=== PATIENT | female | born 1945 | race Caucasian/White ===

== ENCOUNTER 2016-11-01 06:54 | Emergency (ER) | payer MEDICARE ==
[~2016-11-01] VITALS: Ht 170.2 cm; Wt 81.8 kg
[~2016-11-01 06:54] MED LIST: ALBU18HF INH; ALPR0.254 PO; BACL10TA PO; BUTA1CAP39 PO; CAR8A PO; CHOL200025 PO; DIVA250T4 PO; FENO160T14 PO; FEXO-106 PO; FLUT16SP NS; GABA-502 PO; KEN25CR EXT; LOVA40TA PO; MONT10TA20 PO; MULT-1018 PO; NITR0.4T SL; ONDA-54 PO; OXYC1TAB24 PO; POLY17PO6 PO; PRAM0.5T3 PO; RES30 PO; RIZA10TA28 PO; SERT100T9 PO; SYMINH INHALATION; TRAZ-118 PO; WARF2.5T82 PO; WARF5TAB7 PO; [UNRECOGNIZED DRUG - OTHER] TOPICAL; lovenox SQ
[2016-11-01 06:58] VITALS: BP 106/44; PULSE 98; RESP 18; O2SAT 94
[2016-11-01] MEDS ORDERED: oxyCODONE-Acetamin 5-325 mg Tablet PO ONE (07:20)
[2016-11-01 07:28] LABS: BASOPHILS % (AUTO) 0.4 % (0-3); MONOCYTES % (AUTO) 4.5 % (4-12); Mean Corpuscular Hemoglobin 30.7 pg (27.0-35.0); Mean Corpuscular Volume 94.1 fL (81-100); NEUTROPHILS % (AUTO) 62.1 % (40-74); Platelet Count 314 bil/L (150-400)
--- NOTE | 2016-11-01 08:04 | ED.REPORT ---
HPI-Extremity Problem Upper Date of Service Nov 01, 2016 ED Provider: Josef Shelby DO Patient is a 71 year old female on Coumadin who presents to the ED complaining of R elbow pain that is exacerbated by movement onset 3 hours ago. Her pain radiates to her fingers and up her arm. She denies chest pain, SOB, nausea, vomiting, diaphoresis, or any other symptoms. She has not been ill recently. She took 2 nitro for her pain this morning. Nursing Notes Stated Complaint: RIGHT ARM PAIN Chief Complaint: Extremity Trauma Nursing Notes Reviewed: Yes Allergies: Coded Allergies: TAPE (Verified Allergy, Intermediate, Rash, 11/01/16) cefuroxime (Verified Allergy, Intermediate, 11/01/16) azithromycin (Verified Allergy, Unknown, 11/01/16) doxycycline (Verified Allergy, Unknown, 11/01/16) erythromycin base (Verified Allergy, Unknown, 11/01/16) morphine (Verified Adverse Reaction, Intermediate, Hallucinations, 11/01/16) Scheduled ([vaniqua]) 13.9% TOPICAL BID ([lovenox]) SQ BID Budesonide/Formoterol 160-4.5 mcg Inh (Symbicort 160-4.5 mcg Inh) 120 Puff Inhaler 1 PUFF INHALATION BID Cholecalciferol (Vitamin D3) (Vitamin D3) 2,000 Unit Tablet 2,000 UNIT PO DAILY Divalproex (Divalproex) 250 Mg Tablet.dr 250 MG PO BID Swallowed whole without chewing to avoid local irritation of the mouth and throat. Doxazosin (Cardura) 8 Mg Tablet 8 MG PO HS Fenofibrate (Fenofibrate) 160 Mg Tablet 160 MG PO DAILY Fexofenadine (Fexofenadine) 180 Mg Tablet 180 MG PO DAILY Gabapentin (Gabapentin) 300 Mg Capsule 300 MG PO BID Lovastatin (Lovastatin) 40 Mg Tablet 80 MG PO HS Montelukast (Singulair) 10 Mg Tablet 10 MG PO HS Multivitamin (Multi Vitamin Daily) 1 Each Tablet 1 EACH PO DAILY Polyethylene Glycol 3350 (Miralax) 17 Gm Powd.pack 17 GM PO DAILY Pramipexole Dihydrochloride (Mirapex) 0.5 Mg Tablet 0.5 MG PO HS Sertraline HCl (Sertraline) 100 Mg Tablet 200 MG PO DAILY Trazodone (Trazodone) 100 Mg Tablet 100-200 MG PO HS Triamcinolone Acet (Triamcinolone Acetonide Cream) 1 Applic/0.25 Gm Cr 1 APPLIC EXT BID Warfarin Sodium (Warfarin Sodium) 5 Mg Tablet 5 MG PO 5xweekly Warfarin Sodium (Warfarin Sodium) 2.5 Mg Tablet 2.5 MG PO 2xweekly Scheduled PRN Albuterol Sulfate (Ventolin HFA Inhaler) 200 Puff/18 Gm Inhaler 2 PUFF INH Q4 PRN PRN For Wheezing Alprazolam (Alprazolam) 0.25 Mg Tablet 0.25 MG PO TID PRN PRN For Anxiety Baclofen (Baclofen) 10 Mg Tablet 10 MG PO TID PRN PRN For Spasm Butalbital/Acetamin/Caff 50-300-40 mg (Fioricet 50-300-40 mg) 1 Each Capsule 1 CAPSULE PO Q4H PRN PRN migraine MR q 2hrs/ NTE 6caps/24hrs Fluticasone Propionate (Fluticasone Propionate Nasal) 16 Gm [place].susp 2 SPRAY NS BID PRN PRN allergy sx Nitroglycerin SL (Nitrostat) 0.4 Mg Tab.subl 0.4 MG SL Q5MIN PRN PRN For Chest Pain Ondansetron (Ondansetron) 8 Mg Tablet 8 MG PO TID PRN PRN For Nausea Rizatriptan ODT (Rizatriptan) 10 Mg Tablet 10 MG PO PRN migraines MR q2h/NTE 30mg/24hrs Temazepam (Temazepam) 30 Mg Cap 30 MG PO HS PRN PRN For Insomnia oxyCODONE-Acetaminophen 5-325 mg (oxyCODONE-Acetaminophen 5-325 mg) 1 Each Tablet 1 TAB PO Q4H PRN PRN For Pain General Time Seen by MD: 07:04 Chief Complaint Elbow injury right Hx Obtained From: Patient Arrived By: Walk-in Onset Occurred: 1 - 4 hours ago Symptom Duration: Since onset Past Medical History Past Medical History factor V leiden deficiency, PE 2003, on coumadin fibromyalgia restless leg Sleep apnea Previous pulmonary embolism Chronic migraines Reports: Asthma, COPD, Hyperlipidemia Reports: Depression Past Surgical History foot surgeries nasal surg L5 decompression lap christopher vag hyst Family History Reports: CAD < 40 years old, Coronary artery disease Smoking History Former Smoker Social History Alcohol Use: "Social" Drug Use: Denies drug use Other Social History: Good social support, Ambulatory Status Independent Review of Systems Musculoskeletal: Reports: Extremity swelling (R arm ), Joint pain (R elbow) Skin: Denies Diaphoresis Complete sys rev & neg: except as marked. Respiratory: Denies: Shortness of breath Cardiovascular: Denies: Chest pain GI: Denies: Nausea, Vomiting Physical Exam Initial Vital Signs Vital Signs (First) Date Time Temp Pulse Resp B/P Pulse Ox O2 Delivery O2 Flow Rate FiO2 11/01/16 06:58 36.5 98 18 106/44 94 Room Air Initial VS: Reviewed General/Constitutional: Well-developed, Well-nourished Head / Eyes: Atraumatic, Normocephalic Neck: Full range of motion Respiratory: Breath sounds normal, Clear to auscultation, No respiratory distress Cardiovascular: Regular rate & rhythm, Heart sounds normal, Intact distal pulses Abdomen / GI: Soft, Non-tender Skin: Warm, Dry Neurologic: Alert, Oriented, Nonfocal Psychiatric: Mood/affect normal, Behavior normal, Normal thought content Upper Extremity / MS: Atraumatic Right Elbow: Positive: Tenderness present... (Mild) Interpretation & Diagnostics Lab Results Interpretation Result Diagram: 11/01/16 0710 11/01/16 0710 Test 11/01/16 07:10 11/01/16 08:13 White Blood Count 6.9th/mm3 (3.8-10.1) Red Blood Count 4.07mil/mm3 (3.90-5.20) Hemoglobin 12.5g/dL (12.0-15.6) Hematocrit 38.3% (35.0-46.0) Mean Corpuscular Volume 94.1fL (81-100) Mean Corpuscular Hemoglobin 30.7pg (27.0-35.0) Mean Corpuscular Hemoglobin Concent 32.6% (32.0-37.0) Red Cell Distribution Width 13.2% (12.3-15.4) Platelet Count 314bil/L (150-400) Neutrophils (%) (Auto) 62.1% (40-74) Lymphocytes (%) (Auto) 29.7% (14-46) Monocytes (%) (Auto) 4.5% (4-12) Eosinophils (%) (Auto) 3.0% (0-5) Basophils (%) (Auto) 0.4% (0-3) Sodium Level 143mEq/L (134-144) Potassium Level 3.5mEq/L (3.5-5.2) Chloride Level 105mEq/L (97-108) Carbon Dioxide Level 25mmol/L (18-29) Blood Urea Nitrogen 20mg/dL (8-27) Creatinine 0.95mg/dL (0.57-1.00) Estimat Glomerular Filtration Rate 83mL/min (>59) Glucose Level 145mg/dL (60-99) Calcium Level 9.8mg/dL (8.5-10.1) Magnesium Level 2.0mg/dL (1.6-2.6) Total Bilirubin 0.2mg/dL (0.0-1.2) Aspartate Amino Transf (AST/SGOT) 18U/L (0-50) Alanine Aminotransferase (ALT/SGPT) 14U/L (0-32) Alkaline Phosphatase 44U/L (25-165) Troponin T < 0.010ug/L (0.0-0.011) Total Protein 7.3g/dL (6.4-8.4) Albumin 4.3g/dL (3.4-5.0) Prothrombin Time 26.9sec (8.1-12.5) Prothromb Time International Ratio 2.47ratio ECG Interpretation ECG Interpretation: sinus rate [address] changes inferior Q waves unchanged from 09/17/15 Time: 07:27 Interpreted by: ED physician X-Ray Chest Interpretation Chest Xray Interpretation: IMPRESSION: No acute cardiopulmonary disease process. Dictated by: Emily Rivas MD, PhD on 11/01/2016 at 8:27 Approved by: Emily Rivas MD, PhD on 11/01/2016 at 8:27 View: Portable, 1 view Interpretation / Wet Read by: Interpret - Radiologist Re-Eval/Medical Decision Med Decision/Clinical Course Overall not consistent with acute coronary syndrome, patient is feeling better. Doubt pulmonary was not with therapeutic INR and symptoms not consistent with PE. Offered a second troponin and EKG and continued observation however patient is reassured and declines further management. This seems reasonable and she will follow-up with her doctor. Source of Hx: Old records Re-Evaluation/Progress : Time of Eval: 08:36 Re-Evaluation/Progress Note: Discussed plan for discharge. Patient understands and agrees with plan. All questions addressed at this time. Counseled Regarding: Diagnosis, Lab results, Need for follow-up, When/why to return to ED Discharge & Departure Impression: Primary Impression: Right elbow pain Disposition: Home Discharge Condition All VS Reviewed: Yes Condition: Stable Additional Instructions: Overall your findings are not consistent with a heart attack. Call your regular doctor for further care. Avoid movements that cause pain to the right arm. Return to ER for any persistent pain symptoms concerning for heart attack or other concerns. Referrals: Hoda Simpson (PCP) Scribe Attestation Portions of this note were transcribed by Carl Desai. I, Dr. Shelby personally performed the history, physical exam and medical decision-making; I reviewed and confirmed the accuracy of the information in the transcribed note. Signed by: Carl Desai 11/01/16, 0854 copies to: Hoda Simpson Timothy S DO Nov 01, 2016 08:04 CARL DESAI Nov 01, 2016 08:43
[2016-11-01 08:13] LABS: TROPONIN T < 0.010 ug/L (0.0-0.011)
[2016-11-01 08:20] LABS: INR 2.47 ratio
--- NOTE | 2016-11-01 08:29 | DRSVH ---
PROCEDURE: X-RAY CHEST ONE VIEW, PORTABLE ([id number]) INDICATIONS: Arm pain TECHNIQUE: One view of the chest was acquired. COMPARISON: [facility], CR, XR CHEST 1VW (PORTABLE), 09/17/2015, 11:56. FINDINGS: Surgical changes and devices: None. Lungs and pleura: No pleural effusions or pneumothorax. Lungs are clear. Mediastinum: Mediastinal contours appear normal. Heart size is normal. Bones and chest wall: No suspicious bony lesions. Overlying soft tissues appear unremarkable. IMPRESSION: No acute cardiopulmonary disease process. Dictated by: Emily Rivas MD, PhD on 11/01/2016 at 8:27 Approved by: Emily Rivas MD, PhD on 11/01/2016 at 8:27
[2016-11-01 08:58] VITALS: BP 106/44; PULSE 70; RESP 15; O2SAT 96
== END 2016-11-01 08:59 | disposition home or self-care (01) ==
LOC: SED 06:54
DX: M25.521 Pain in right elbow (principal); J44.9 Chronic obstructive pulmonary disease, unspecified; M79.7 Fibromyalgia; E78.5 Hyperlipidemia, unspecified; Z79.01 Long term (current) use of anticoagulants; Z87.891 Personal history of nicotine dependence; Z88.1 Allergy status to other antibiotic agents; Z88.5 Allergy status to narcotic agent; Z88.8 Allergy status to other drugs, medicaments and biological substances